=== PATIENT | female | born 1980 | race Caucasian/White ===

== ENCOUNTER 2017-08-20 08:11 | Outpatient (CLI) | payer BC ==
[~2017-08-20] VITALS: Ht 170.2 cm; Wt 61.8 kg
[~2017-08-20 08:11] MED LIST: CARAFATE 1GM1 G PO; CIPRO 500MG TA500 MG PO; FLONASE NASAL S16 GM NS; MOTRIN 600600 MG/TAB PO; NORCO 325 MG-51 TAB PO; PREDNISONE10 MG PO; PRENATAL VITAMI1 TAB PO; PRENATAL1 TA1 PO; PRILOSEC 20MG20 MG PO
[2017-08-20 08:45] VITALS: BP 107/46; PULSE 75
[2017-08-20] MEDS ORDERED: ZYRTEC 10MG10 MG PO (09:17)
[2017-08-20] MEDS ORDERED: SINGULAIR 110 MG/TAB PO (09:20)
== END 2017-08-20 10:08 | disposition home or self-care (01) ==
LOC: COL.CAR 08:11
DX: R55 Syncope and collapse (principal); I49.3 Ventricular premature depolarization; I07.1 Rheumatic tricuspid insufficiency; Z88.1 Allergy status to other antibiotic agents; Z88.5 Allergy status to narcotic agent; Z88.8 Allergy status to other drugs, medicaments and biological substances

== ENCOUNTER 2022-03-14 10:34 | Emergency (ER) | payer BC ==
[~2022-03-14] VITALS: Ht 167.6 cm; Wt 54.5 kg
[~2022-03-14 10:34] MED LIST changes: +ANTIVERT 25MG25 MG PO; +CLARITIN 1010 MG/TAB PO; +COMPAZINE 110 MG/TAB PO; +DECADRON 4MG TAB4 MG PO; +DULCOLAX STOOL100 MG PO; +FEMARA PO; +MOTRIN 200200 MG/TAB PO; +PERCOCET 325 MG1 TA2 PO; +SENNA-S 50 MG-81 TAB PO; +SINGULAIR 110 MG/TAB PO; +TOPROL XL 25MG25 MG PO; +TRANSDERM-0.5 MG/21 TD; +ZOFRAN8 MG PO; +ZYRTEC 10MG10 MG PO
[2022-03-14 11:11] VITALS: TEMP 98.4
[2022-03-14 11:55] LABS: COLLECTION METHOD CLEAN CATCH
[2022-03-14 12:01] LABS: URINE APPEARANCE Clear (CLEAR/HAZY); URINE BLOOD TRACE-INTACT (NEGATIVE); URINE COLOR Yellow (YELLOW); URINE GLUCOSE Negative (NEGATIVE); URINE KETONE Negative (NEGATIVE); URINE NITRATE Negative (NEGATIVE); URINE PROTEIN(semi-quant) Negative (NEGATIVE); URINE UROBILINOGEN 0.2 E.U/dL (0.2-1.0)
[2022-03-14 12:06] LABS: SQUAMOUS EPITHELIAL None Seen /hpf (0-10); URINE BACTERIA None Seen /hpf (NONE SEEN); URINE RBC None Seen /hpf (0-2)
[2022-03-14 12:22] LABS: HEMATOCRIT 26.2 % (37.0-47.0); HEMOGLOBIN 8.7 g/dl (12.5-16.0); MEAN CELL VOLUME 85 fl (80.0-100.0); MEAN CORPUSCULAR HEMOGLOBIN 28 pg (27-31); MEAN CORPUSCULAR HGB CONC 33 g/dl (33.0-37.0); PLATELET COUNT 186 K/mm3 (130-400); RED BLOOD COUNT 3.09 M/mm3 (4.10-5.30); REDCELL DISTRIBUTION WIDTH-CV 15.9 % (11.5-14.5)
[2022-03-14 12:52] LABS: BAND 10 % (0-10); LYMPHOCYTE 45 % (20.0-51.0); METAMYELOCYTE 1 % (0-0); NEUTROPHILS 29 % (42.0-75.2); PLATELET ESTIMATE NORMAL (NORMAL)
[2022-03-14 12:58] LABS: ALBUMIN 3.2 gm/dL (3.5-5.0); BILIRUBIN,TOTAL 0.2 mg/dL (0.2-1.2); CALCIUM 9.3 mg/dL (8.4-10.2); CREATININE, serum 0.53 mg/dL (0.57-1.11); POTASSIUM 3.4 mmol/L (3.5-4.5); TOTAL PROTEIN 6.7 gm/dL (6.2-8.1)
[2022-03-14 17:47] VITALS: BP 106/65; PULSE 83
== END 2022-03-14 17:50 | disposition short-term general hospital (02) ==
LOC: COL.ER 10:34
PROVIDERS: Nurse Practitioner Family
DX: L02.211 Cutaneous abscess of abdominal wall (principal); Z85.43 Personal history of malignant neoplasm of ovary
CPT/HCPCS: Q9967

== ENCOUNTER 2023-10-23 13:51 | Emergency (ER) | payer BC ==
[~2023-10-23] VITALS: Ht 167.6 cm; Wt 59.1 kg
[2023-10-23] MEDS ORDERED: Ondansetron 4 MG/2 ML VIAL IV ONE ×3 (14:45→18:15)
[2023-10-23] MEDS ORDERED: fentaNYL 50 MCG/ML 2 ML VIAL IV ONE ×3 (14:45→21:00)
[2023-10-23] MEDS ORDERED: LR 1,000 ML IV ONE (14:45)
[2023-10-23 15:17] LABS: BASO # 0.1 K/mm3 (0.0-0.2); BASO % 0.4 % (0.0-2.0); EOS # 0.1 K/mm3 (0.0-0.7); EOS % 0.6 % (0.0-4.0); GRAN # 11.6 K/mm3 (1.4-6.5); GRAN % 87.9 % (42.2-75.2); HEMATOCRIT 38.2 % (37.0-47.0); HEMOGLOBIN 13.3 g/dl (12.5-16.0); LYMPH # 0.9 K/mm3 (1.2-3.4); LYMPH % 6.7 % (20.0-51.0); MEAN CELL VOLUME 83 fl (80.0-100.0); MEAN CORPUSCULAR HEMOGLOBIN 29 pg (27-31); MEAN CORPUSCULAR HGB CONC 35 g/dl (33.0-37.0); MEAN PLATELET VOLUME 9.8 fl (7.4-10.4); MONO # 0.5 K/mm3 (0.1-0.6); PLATELET COUNT 168 K/mm3 (130-400); RED BLOOD COUNT 4.63 M/mm3 (4.10-5.30); REDCELL DISTRIBUTION WIDTH-CV 13.6 % (11.5-14.5)
[2023-10-23 15:36] LABS: ALBUMIN 3.8 g/dL (3.5-5.0); BILIRUBIN,TOTAL 0.8 mg/dL (0.2-1.2); CALCIUM 9.9 mg/dL (8.4-10.2); CREATININE, serum 0.78 mg/dL (0.57-1.11); MAGNESIUM 1.6 mg/dL (1.6-2.6); POTASSIUM 2.8 mEq/L (3.5-4.5); TOTAL PROTEIN 7.6 g/dl (6.2-8.1)
[2023-10-23] MEDS ORDERED: LORazepam 2 MG/ML 1 ML VIAL IV ONE (15:45)
[2023-10-23] MEDS ORDERED: Magnesium Sulfate 4% 50 ML IV ONE (15:45)
[2023-10-23] MEDS ORDERED: Iohexol 300 - 100 ML VIAL IV ONE (16:28)
[2023-10-23] MEDS ORDERED: NS 100 ML IV SCH (16:30)
[2023-10-23] MEDS ORDERED: Potassium Chloride 100 ML IV ONE (17:00)
[2023-10-23 21:00] VITALS: BP 109/54; PULSE 71; TEMP 18
== END 2023-10-23 21:00 | disposition short-term general hospital (02) ==
LOC: COL.ER 13:51
PROVIDERS: Emergency Medicine
DX: C56.9 Malignant neoplasm of unspecified ovary (principal); K56.609 Unspecified intestinal obstruction, unspecified as to partial versus complete obstruction; Z90.49 Acquired absence of other specified parts of digestive tract; Z92.21 Personal history of antineoplastic chemotherapy
CPT/HCPCS: J2060; J2405; J3010; J3475; J3480; J7120; Q9967

== ENCOUNTER 2024-01-05 14:40 | Inpatient (IN) | payer BC ==
[~2024-01-05] VITALS: Ht 167.6 cm; Wt 59.1 kg
[2024-01-05] MEDS ORDERED: HYDROmorphone 0.5 MG/0.5 ML SYRINGE IV ONE ×2 (15:15→17:45)
[2024-01-05] MEDS ORDERED: diphenhydrAMINE 50 MG/ML 1 ML VIAL IV ONE (15:15)
[2024-01-05] MEDS ORDERED: droPERidol 2.5 MG/ML 2 ML VIAL IV ONE (15:15)
[2024-01-05] MEDS ORDERED: LR 1,000 ML IV ONE (15:15)
[2024-01-05 15:49] LABS: BASO # 0.1 K/mm3 (0.0-0.2); BASO % 0.6 % (0.0-2.0); EOS # 0.1 K/mm3 (0.0-0.7); EOS % 1.3 % (0.0-4.0); GRAN # 8.5 K/mm3 (1.4-6.5); GRAN % 81.6 % (42.2-75.2); HEMATOCRIT 38.1 % (37.0-47.0); HEMOGLOBIN 12.6 g/dl (12.5-16.0); LYMPH # 0.9 K/mm3 (1.2-3.4); LYMPH % 8.4 % (20.0-51.0); MEAN CELL VOLUME 85 fl (80.0-100.0); MEAN CORPUSCULAR HEMOGLOBIN 28 pg (27-31); MEAN CORPUSCULAR HGB CONC 33 g/dl (33.0-37.0); MEAN PLATELET VOLUME 10.6 fl (7.4-10.4); MONO # 0.8 K/mm3 (0.1-0.6); MONO % 7.8 % (1.7-9.3); PLATELET COUNT 144 K/mm3 (130-400)
[2024-01-05] MEDS ORDERED: Iohexol 300 - 100 ML VIAL IV ONE (16:04)
[2024-01-05] MEDS ORDERED: NS 100 ML IV SCH (16:05)
[2024-01-05 16:12] LABS: ALBUMIN 3.9 g/dL (3.5-5.0); CALCIUM 9.7 mg/dL (8.4-10.2); CREATININE, serum 0.76 mg/dL (0.57-1.11); POTASSIUM 3.4 mEq/L (3.5-4.5); TOTAL PROTEIN 7.4 g/dl (6.2-8.1)
[2024-01-05 16:21] LABS: BILIRUBIN,TOTAL 0.7 mg/dL (0.2-1.2)
[2024-01-05 16:31] LABS: C-REACTIVE PROTEIN 0.11 mg/dL (0.00-0.50)
[2024-01-05] MEDS ORDERED: DILAUDID 2MG TAB2 MG PO (17:39)
[2024-01-05] MEDS ORDERED: Ondansetron 4 MG/2 ML VIAL IV ONE (18:00)
[2024-01-05] MEDS ORDERED: REGLAN 5MG T5 MG/TAB PO (20:58)
[2024-01-05] MEDS ORDERED: ATIVAN 1MG T1 MG/TAB PO (20:58)
[2024-01-05 21:00] VITALS: BP_SYST 108
[2024-01-05] MEDS ORDERED: MELATONIN5 M1 PO (21:00)
[2024-01-05] MEDS ORDERED: HYDROmorphone 0.5 MG/0.5 ML SYRINGE IV PRN (21:00)
[2024-01-05] MEDS ORDERED: Ondansetron 4 MG/2 ML VIAL IV PRN (21:00)
[2024-01-05] MEDS ORDERED: LR 1,000 ML IV SCH (21:00)
[2024-01-05] MEDS ORDERED: ZOFRAN ODT8 MG PO (21:01)
[2024-01-05] MEDS ORDERED: DECADRON OPHTH D5 ML OP (21:01)
--- NOTE | 2024-01-05 21:50 | NUR ---
pt arrived to room 324 at 2150. pt ambulated to bed without issue. pt reporting nausea. prn zofran administered per orders. ivf running at 150ml/hr to left chest port without issue. admission, med rec, and physical assessment complete. call light in reach. all needs met at this time.
[2024-01-05 22:21] VITALS: BP 108/69; PULSE 82; TEMP 98.6
--- NOTE | 2024-01-05 22:31 | NUR ---
pt reporting some abd cramping rated 7/10. prn dilaudid administered per orders.
[2024-01-06] VITALS (16 sets, daily range): BP systolic 96–123; BP diastolic 52–79; PULSE 71–90; TEMP 98.1–102.9
--- NOTE | 2024-01-06 07:13 | NUR ---
Pt laying in bed. Dr Estrella rounded on Pt. at bedside. Pt denies needs at this time. Call light in reach.
[2024-01-06 07:16] LABS: COLLECTION METHOD CLEAN CATCH
[2024-01-06 07:22] LABS: URINE APPEARANCE CLEAR (CLEAR/HAZY); URINE BLOOD NEGATIVE (NEGATIVE); URINE COLOR YELLOW (YELLOW); URINE GLUCOSE NEGATIVE (NEGATIVE); URINE KETONE 1+ (NEGATIVE); URINE NITRATE NEGATIVE (NEGATIVE); URINE PROTEIN(semi-quant) NEGATIVE (NEGATIVE); URINE UROBILINOGEN 0.2 E.U/dL (0.2-1.0)
--- NOTE | 2024-01-06 08:56 | NUR ---
Pt laying in bed with at bedside. A&Ox4. VSS. S1S2. Clear lungs on RA. ABD is flat, soft, non-tender with audible bowel sounds. Pt denies pain, n/v. Pt reports mild bloating but not as much as yesterday. Colostomy in LLQ is pink with seal intact. Pt denies headache. L chest port is patent wth LR running at 150 cc/hr. Dressing CDI. Pt requesting morning meds. Call light in reach.
--- NOTE | 2024-01-06 09:00 | NUR ---
JEROME met with patient and to complete initial assessment for discharge planning. Patient and Mando ([phone]) live in [place]. She also lists her mother in law Philomena as an alternate contact ([phone]). Patient sees Dr. Herman Odonnell as her PCP and uses [facility] pharmacy in [place]. Pt denies having any DME. Patient states her is DPOA and will email copy for patient's chart. Patient reports "I'm terminal" and reports receiving chemo treatments and denies any in home services at this time. Plan is to discharge home when medically stable. Discharge plan: Home
[2024-01-06] MEDS ORDERED: Loratadine 10 MG TAB PO SCH (09:26)
[2024-01-06] MEDS ORDERED: LORazepam 1 MG TAB PO PRN (09:30)
[2024-01-06] MEDS ORDERED: Omeprazole 20 MG **** subs to Pantoprazole 40 MG PO PRN (09:30)
[2024-01-06] MEDS ORDERED: dexAMETHasone 4 MG TAB PO SCH (09:30)
--- NOTE | 2024-01-06 10:43 | NUR ---
Initial visit; Patient thanked Weight Loss Consultant for looking in on her and offering God's blessings. Patient declined spiritual care. Her was also present.
[2024-01-06] MEDS ORDERED: Acetaminophen 325 MG TAB PO PRN (16:30)
--- NOTE | 2024-01-06 16:36 | NUR ---
Pt reporting throbbing, increasing headache. Wishing to D/C IV fluids. Called Dr Estrella. Per Dr Estrella, INT fluids and administer Tylenol for headache. Call light in reach.
--- NOTE | 2024-01-06 19:21 | NUR ---
report received from dimitry young. pt resting in bed with at bedside. pt denies pain at this time but reports abd cramping with clears other than water. call light in reach. all needs met at this time.
--- NOTE | 2024-01-06 21:33 | NUR ---
pt running temp of 101 and c/o urinary burning. prn tylenol administered per orders. updated security operations center operator dr ball.
--- NOTE | 2024-01-06 22:03 | NUR ---
pt temp now 102.9. blood cultures ordered per dr ball. hospitalist consulted per dr ball.
--- NOTE | 2024-01-06 22:17 | NUR ---
shift assessment complete, see documentation. call light in reach. all needs met at this time.
[2024-01-06 22:38] LABS: BASO % 0.4 % (0.0-2.0); EOS # 0.1 K/mm3 (0.0-0.7); EOS % 0.8 % (0.0-4.0); GRAN # 5.8 K/mm3 (1.4-6.5); GRAN % 78.8 % (42.2-75.2); HEMOGLOBIN 11.3 g/dl (12.5-16.0); LYMPH # 0.7 K/mm3 (1.2-3.4); LYMPH % 9.7 % (20.0-51.0); MEAN CELL VOLUME 83 fl (80.0-100.0); MEAN CORPUSCULAR HEMOGLOBIN 29 pg (27-31); MEAN CORPUSCULAR HGB CONC 35 g/dl (33.0-37.0); MEAN PLATELET VOLUME 10.1 fl (7.4-10.4); MONO # 0.7 K/mm3 (0.1-0.6); MONO % 9.9 % (1.7-9.3); PLATELET COUNT 108 K/mm3 (130-400); RED BLOOD COUNT 3.92 M/mm3 (4.10-5.30); REDCELL DISTRIBUTION WIDTH-CV 13.8 % (11.5-14.5)
[2024-01-06 22:39] LABS: HEMATOCRIT 32.5 % (37.0-47.0)
[2024-01-06] MEDS ORDERED: Vancomycin 1.5 GM,Special Dose/Pharmacy Prepared 1.5 GM in NS 250 ML IV SCH (22:45)
[2024-01-06 23:04] LABS: ALBUMIN 3.5 g/dL (3.5-5.0); BILIRUBIN,TOTAL 0.6 mg/dL (0.2-1.2); CALCIUM 9.3 mg/dL (8.4-10.2); CREATININE, serum 0.76 mg/dL (0.57-1.11); TOTAL PROTEIN 6.6 g/dl (6.2-8.1)
[2024-01-06] MEDS ORDERED: Vancomycin 1.25 GM,Special Dose/Pharmacy Prepared 1.25 GM in NS 250 ML IV ONE (23:15)
[2024-01-06 23:21] LABS: COLLECTION METHOD CLEAN CATCH
[2024-01-06 23:34] LABS: PH 5.5 (5.0-8.5); URINE APPEARANCE CLEAR (CLEAR/HAZY); URINE BLOOD 1+ (NEGATIVE); URINE COLOR YELLOW (YELLOW); URINE GLUCOSE NEGATIVE (NEGATIVE); URINE KETONE 1+ (NEGATIVE); URINE NITRATE NEGATIVE (NEGATIVE); URINE PROTEIN(semi-quant) NEGATIVE (NEGATIVE); URINE UROBILINOGEN 0.2 E.U/dL (0.2-1.0)
--- NOTE | 2024-01-06 23:41 | NUR ---
pt reporting nausea. prn zofran administered. iv abx running without issue.
[2024-01-07] VITALS (15 sets, daily range): BP systolic 96–115; BP diastolic 40–68; PULSE 72–99; TEMP 98–102.1
[2024-01-07] MEDS ORDERED: Ibuprofen 400 MG TAB PO ONE (00:45)
[2024-01-07] MEDS ORDERED: Potassium Chloride 100 ML IV SCH (01:00)
[2024-01-07] MEDS ORDERED: *Potassium Replacement Protocol MC SCH (01:00)
--- NOTE | 2024-01-07 05:26 | NUR ---
43 yo female with a history of metastatic ovarian cancer is now admitted for suspected small bowel obstruction and possible sepsis of unclear etiology. ht 167.6 cm wt 59.1 kg SCr 0.76 with estimated CrCl >60 ml/min half life 8 hours Plan: Will give an initial loading dose of vancomycin 1250 mg x1 (21.1 mg/kg); followed by a maintenance regimen of vancomycin 1000 mg iv q8h to target a goal trough of 15-20 mcg/ml. Will follow patient's renal function, micro data, and vancomycin levels as indicated to assess for any necessary changes to regimen. Thank you for this dosing consult.
--- NOTE | 2024-01-07 08:39 | NUR ---
hospice social worker obtained DPOA-HC and placed in pt's chart. Discharge Plan: home
--- NOTE | 2024-01-07 09:00 | NUR ---
SHIFT ASSESSMENT COMPLETE. VSS. PATIENT RESTING IN BED W/ AT BEDSIDE. PATIENT REQUESTING SHOWER, LET PATIENT KNOW ONCE ANTIBIOTIC IS FINISHED INFUSING WE WILL LET HER SHOWER. ALL MORNING MEDS GIVEN PER ORDERS. PATIENT HAS NO OTHER REQUEST AT THIS TIME. CALL LIGHT IN REACH.
[2024-01-07] MEDS ORDERED: diphenhydrAMINE 50 MG/ML 1 ML VIAL IV ONE (11:30)
--- NOTE | 2024-01-07 11:40 | NUR ---
PATIENT REPORTED THAT SHE IS FEELING ITCHY ON HER HEAD,FACE,NECK AND CHEST. STOPED VANCOMYCIN INFUSION AND CAN DUONG ROCHA. RECEIVED ORDER FOR BENADRYL, ADMINISTERED ORDERED. PATIENT SHOWS NO SIGN OF HIVES OR A RASH AT THIS TIME.
[2024-01-07] MEDS ORDERED: Magnesium Sulfate 4% 50 ML IV ONE (12:15)
--- NOTE | 2024-01-07 18:00 | NUR ---
Pt. sitting up in bed with friend at bedside. Pt. reported headache pain at a 2. Pt. denies need for meds at this time. Pt. did ask if she could have the meds at bedtime. Informed pt. that i would let the provider enrollment specialist nurse know. This nurse also asked the pt, if she take anything to help her sleep. Pt. reports that she takes melatonin. AVANI Harris notified. New orders received. Will also let provider enrollment specialist nurse know of this. Pt. denies further needs, call light within reach.
--- NOTE | 2024-01-07 20:00 | NUR ---
PATIENT IS A&O AND INDEPENDENT IN ROOM. VSS. C/O BROWN AND REQUESTING SOMETHING FOR PAIN BEFORE BED, GIVEN, SEE MAR. HEAD TO TOE ASSESSMENT COMPLETE. TOLERATING FULL LIQUID DIET. IV ABX INFUSING VIA PUMP INTO RIGHT CHEST PORT. BC PENDING. SCD'S TO BLE. AT BEDSIDE. NO OTHER NEEDS AT THIS TIME. CALL LIGHT IN REACH.
[2024-01-07] MEDS ORDERED: Melatonin 3 MG TAB PO SCH (21:00)
[2024-01-08] VITALS (8 sets, daily range): BP systolic 107–119; BP diastolic 65–72; PULSE 67–71; TEMP 97.9–98.1
--- NOTE | 2024-01-08 06:45 | NUR ---
Pt sleeping. at bedside. Call light in reach.
[2024-01-08] MEDS ORDERED: NS 1,000 ML IV SCH (08:45)
--- NOTE | 2024-01-08 08:55 | NUR ---
Pt laying in bed. A&Ox4. VSS. Pt had elevated temps in the last 24 hours but WNL overnight. S1S2. Clear lungs on RA. ABD flat, soft, non-tender with audible bowel sounds. Colostmy is CDI with bag in place. Palpable pulses in all extremities with normal strength. Central line on L chest has clean, transparent dressing. Per Pt hurts if flushing line too fast. Positive blood cultures. Call light in reach. at bedside. [employer] faxing information to transfer center regarding possible port removal.
[2024-01-08] MEDS ORDERED: NS Flush 25 ML IV Bag IV SCH (09:00)
[2024-01-08] MEDS ORDERED: LR 1,000 ML IV SCH (11:45)
--- NOTE | 2024-01-08 13:01 | NUR ---
Called report to PARAMJIT Abdi at [facility]. No questions at this time. Nurse to call back if they have any questions.
--- NOTE | 2024-01-08 13:45 | NUR ---
Pt walked out to vehicle with . On their way to .
== END 2024-01-08 13:50 | disposition short-term general hospital (02) | DRG 389 ==
LOC: COL.ER 14:40 → SURG 20:47
PROVIDERS: Family Medicine; Nurse Practitioner Family; ADMIT Surgery
DX: K56.600 Partial intestinal obstruction, unspecified as to cause (principal); C56.9 Malignant neoplasm of unspecified ovary; T80.211A Bloodstream infection due to central venous catheter, initial encounter; C78.6 Secondary malignant neoplasm of retroperitoneum and peritoneum; R78.81 Bacteremia; E87.6 Hypokalemia; T36.8X5A Adverse effect of other systemic antibiotics, initial encounter; E83.42 Hypomagnesemia; B96.89 Other specified bacterial agents as the cause of diseases classified elsewhere; Y84.8 Other medical procedures as the cause of abnormal reaction of the patient, or of later complication, without mention of misadventure at the time of the procedure; L29.9 Pruritus, unspecified; Z88.5 Allergy status to narcotic agent; Z88.2 Allergy status to sulfonamides; Z88.8 Allergy status to other drugs, medicaments and biological substances; Z90.710 Acquired absence of both cervix and uterus; Z79.899 Other long term (current) drug therapy
CPT/HCPCS: J0737; J1170; J1200; J1790; J2405; J2543; J3370; J3475; J3480; J7030; J7050; J7120; Q9967

== ENCOUNTER 2024-01-24 09:59 | Emergency (ER) | payer BC ==
[~2024-01-24] VITALS: Ht 167.6 cm; Wt 50.0 kg
[~2024-01-24 09:59] MED LIST changes: +ATIVAN 1MG T1 MG/TAB PO; +DECADRON OPHTH D5 ML OP; +DILAUDID 2MG TAB2 MG PO; +MELATONIN5 M1 PO; +REGLAN 5MG T5 MG/TAB PO; +ZOFRAN ODT8 MG PO
[2024-01-24 10:07] VITALS: TEMP 97.3
[2024-01-24] MEDS ORDERED: DILAUDID 2MG TAB2 MG PO ×2 (10:11→10:51)
[2024-01-24] MEDS ORDERED: HYDROmorphone 0.5 MG/0.5 ML SYRINGE IV ONE ×3 (10:15→12:00)
[2024-01-24] MEDS ORDERED: Ondansetron 4 MG/2 ML VIAL IV ONE ×2 (10:30→12:45)
[2024-01-24] MEDS ORDERED: NS 1,000 ML IV ONE (10:30)
[2024-01-24] MEDS ORDERED: FENTANYL 100 MCG TD ONE (10:45)
[2024-01-24] MEDS ORDERED: FENTANYL 100MCG TD (10:51)
[2024-01-24 12:19] VITALS: BP 110/76; PULSE 81
== END 2024-01-24 12:46 | disposition home or self-care (01) ==
LOC: COL.ER 09:59
DX: C79.60 Secondary malignant neoplasm of unspecified ovary (principal); G89.29 Other chronic pain; Z88.6 Allergy status to analgesic agent
CPT/HCPCS: J1170; J2405; J7030